=== PATIENT | female | born 1960 | race Caucasian/White ===

== ENCOUNTER → 2016-11-03 | Outpatient (CLI) | payer BC, OTHER ==
--- NOTE | 2016-11-03 12:13 | MA ---
Diagnostic Mammogram Left Breast With iCAD Analysis Clinical Indications: Follow-up probably benign nodularity noted on the screening tomographic study J evan 2015, and further evaluated with targeted left breast ultrasound. Technique: Standard cephalocaudal projection is obtained. Digital breast tomosynthesis was performed in the MLO projection with reconstruction at 1.0 mm slice thickness and composite MLO views reconstru cted. This examination is processed by the iCAD computer-aided detection system. Comparison: Screening tomographic evaluation April 10, 2016. Breast Density: Type C: Heterogeneously dense. Findings: CAD was reviewed. The nodularity noted on the screening tomographic study does not persist and the appearance would be compatible with normal glandular elements. No mass is seen and no suspici ous microcalcifications are identified. Impression: Negative mammogram. BI-RADS 1. Recommendation: Resume routine mammographic screening in March 2017 as long as physical examination is negative. A verbal report was given to the patient. [facility] will send a result letter to the patient. Negative mammography should not preclude additional workup of a clinically suspicious finding. The patient's information is entered into a reminder system with a target due date for her next mammo gram.
== END ==
LOC: FIMAGING 11:34
DX: Z12.39 Encounter for other screening for malignant neoplasm of breast (principal); N63 Unspecified lump in breast
CPT/HCPCS: G0206; G0279

== ENCOUNTER → 2018-01-29 | Outpatient (CLI) | payer BC | LOC: FIMAGING 15:07 | PROVIDERS: ATTEND Physician Assistant Medical | DX: Z12.31 Encounter for screening mammogram for malignant neoplasm of breast (principal) ==